=== PATIENT | male | born 1995 | race African-American/Black ===

== ENCOUNTER 2023-06-07 17:39 | Emergency (ER) | payer MEDICAID ==
[~2023-06-07] VITALS: Ht 175.3 cm; Wt 68.5 kg
[2023-06-07] MEDS ORDERED: CHLORDIAZEPOXIDE HCL 25 MG CAPSULE ONE (20:38)
[2023-06-07] MEDS ORDERED: CHLORDIAZEPOXIDE HCL 25 MG CAPSULE PO ONE (21:00)
[2023-06-07 21:10] LABS: BASOPHILS # (AUTO) 0.1 K/uL (0.0-0.2); BASOPHILS % (AUTO) 0.7 % (0.0-2.0); EOSINOPHILS % (AUTO) 0.4 % (0.0-6.0); HEMATOCRIT 38 % (39-51); HEMOGLOBIN 12.7 g/dL (13.5-17.5); LYMPHOCYTES # (AUTO) 0.8 K/uL (0.8-4.8); LYMPHOCYTES % (AUTO) 9.3 % (20.0-44.0); MEAN CORPUSCULAR HEMOGLOBIN 30 PG (26.0-33.0); MEAN CORPUSCULAR HGB CONC 33 g/dl (31.0-36.0); MEAN CORPUSCULAR VOLUME 90 fL (80-96); MONOCYTES % (AUTO) 11.8 % (2.0-12.0); NEUTROPHILS # (AUTO) 6.8 K/uL (1.8-8.9); NEUTROPHILS % (AUTO) 77.8 % (43.0-81.0); PLATELET COUNT (AUTO) 161 K/uL (150-450); RED BLOOD CELL COUNT(AUTO) 4.24 MIL/uL (4.5-6.0); RED CELL DISTRIBUTION WIDTH 18.3 % (11.5-15.0); WHITE BLOOD COUNT (AUTO) 8.7 K/uL (4.3-11.0)
[2023-06-07 21:18] LABS: CALCIUM, SERUM 9.2 mg/dL (8.5-10.1); CREATININE 1.3 mg/dL (0.6-1.3); POTASSIUM 3.6 mmol/L (3.5-5.1)
[2023-06-07] MEDS ORDERED: LEVETIRACETAM (500MG) 500 MG/5 ML VIAL IV ONE (21:59)
[2023-06-07] MEDS ORDERED: CHLO25CA22 PO (22:00)
[2023-06-07] MEDS ORDERED: LEVETIRACETAM (500MG) 500 MG in IV NS 0.9% 100 ML IV SCH (22:00)
[2023-06-07] MEDS ORDERED: IV NS 0.9% 1,000 ML BAG IV ONE (22:00)
[2023-06-07] MEDS ORDERED: IBUP-1955 PO (23:02)
[2023-06-07] MEDS ORDERED: IBUPROFEN 600 MG TABLET ONE (23:04)
[2023-06-07] MEDS ORDERED: IBUPROFEN 600 MG TABLET PO ONE (23:30)
[2023-06-07 23:52] VITALS: BP 145/70; TEMP 98.4; O2SAT 100
== END 2023-06-07 23:50 | disposition home or self-care (01) ==
LOC: EDBD 17:51 → ER 17:51
DX: G40.909 Epilepsy, unspecified, not intractable, without status epilepticus (principal); E87.1 Hypo-osmolality and hyponatremia; Z60.2 Problems related to living alone
CPT/HCPCS: 99285; 96365; 85025; 80048; 36415; 80320; J7030 ×2; J1953 ×2; G0480

== ENCOUNTER 2024-03-28 20:58 | Inpatient (IN) | payer MEDICAID ==
[~2024-03-28] VITALS: Ht 175.3 cm; Wt 65.8 kg
[~2024-03-28 20:58] MED LIST: CHLO25CA22 PO; DOXY100C2 PO; IBUP-1955 PO
[2024-03-28] MEDS ORDERED: DIAZEPAM 5 MG/ML 2 ML DISP.SYRIN ONE ×2 (21:21→23:20)
[2024-03-28] MEDS: IV NS 0.9% 1,000 ML BAG IV ONE (21:21)
[2024-03-28 21:22] LABS: BASOPHILS % (AUTO) 0.4 % (0.0-2.0); EOSINOPHILS % (AUTO) 0.2 % (0.0-6.0); HEMATOCRIT 39 % (39-51); HEMOGLOBIN 12.6 g/dL (13.5-17.5); MEAN CORPUSCULAR HEMOGLOBIN 30 PG (26.0-33.0); MEAN CORPUSCULAR HGB CONC 32 g/dl (31.0-36.0); MEAN CORPUSCULAR VOLUME 95 fL (80-96); MONOCYTES # (AUTO) 1.5 K/uL (0.1-1.30); MONOCYTES % (AUTO) 13.2 % (2.0-12.0); NEUTROPHILS # (AUTO) 7.7 K/uL (1.8-8.9); NEUTROPHILS % (AUTO) 68.2 % (43.0-81.0); PLATELET COUNT (AUTO) 176 K/uL (150-450); RED BLOOD CELL COUNT(AUTO) 4.16 MIL/uL (4.5-6.0); RED CELL DISTRIBUTION WIDTH 19.8 % (11.5-15.0); WHITE BLOOD COUNT (AUTO) 11.3 K/uL (4.3-11.0)
[2024-03-28] MEDS: DIAZEPAM 5 MG/ML 2 ML DISP.SYRIN IV ONE ×2 (21:26→23:36)
[2024-03-28 21:50] LABS: CALCIUM, SERUM 10.2 mg/dL (8.5-10.1); CARBON DIOXIDE 17 mmol/L (21-32); CHLORIDE 92 mmol/L (98-107); CREATININE 1.4 mg/dL (0.6-1.3); GLUCOSE 179 mg/dL (74-106); POTASSIUM 3.2 mmol/L (3.5-5.1); SODIUM SERUM 137 mmol/L (136-145); UREA NITROGEN, BLOOD 9 mg/dL (7-18)
[2024-03-28 21:56] LABS: ALANINE AMINOTRANSFERASE 58 U/L (12-78); ALBUMIN 3.8 g/dL (3.4-5.0); ALCOHOL, BLOOD < 3 mg/dL (0-10); ALKALINE PHOSPHATASE 249 U/L (46-116); ASPARTATE AMINOTRANSFERASE 219 U/L (15-37); BILIRUBIN,DIRECT 0.2 mg/dL (0.0-0.2); BILIRUBIN,TOTAL 0.6 mg/dL (0.2-1.0)
[2024-03-28 22:24] VITALS: O2SAT 99
[2024-03-28] MEDS ORDERED: Z GUARD REMEDY 4 OZ OINT TP PRN (23:00)
[2024-03-28] MEDS ORDERED: PHARMACY ADD 1 AMP MVI TO IVF DAILY ONE BAG XX PRN (23:00)
[2024-03-28] MEDS ORDERED: MAGNESIUM HYDROXIDE 30 ML UDC PO PRN (23:00)
[2024-03-28] MEDS ORDERED: LORAZEPAM INJ 2 MG/ML VIAL IV PRN (23:00)
[2024-03-28] MEDS ORDERED: ONDANSETRON HCL/PF 4 MG/2 ML VIAL IVP PRN (23:00)
[2024-03-28] MEDS ORDERED: ZOLPIDEM TARTRATE 5 MG TABLET PO PRN (23:00)
[2024-03-28] MEDS ORDERED: MAG HYDROX/AL HYDROX/SIMETH 30 ML UDC PO PRN (23:00)
[2024-03-28 23:09] LABS: AMPHETAMINE, URINE NEGATIVE (NEGATIVE); BARBITURATE, URINE NEGATIVE (NEGATIVE); BENZODIAZEPINE, URINE NEGATIVE (NEGATIVE); CANNABINOID, URINE NEGATIVE (NEGATIVE); COCCAINE, URINE NEGATIVE (NEGATIVE); OPIATE, URINE NEGATIVE (NEGATIVE); PHENCYCLIDINE SCREEN,URINE NEGATIVE (NEGATIVE)
[2024-03-28] MEDS ORDERED: POTASSIUM CHLORIDE 20 MEQ POWDER PACKET ONE (23:20)
[2024-03-28] MEDS: POTASSIUM CHLORIDE 20 MEQ TAB.PRT.SR PO ONE (23:24)
[2024-03-28 23:30] VITALS: BP 134/76; TEMP 100.4; O2SAT 98
[2024-03-29] MEDS ORDERED: LEVETIRACETAM (500MG) 500 MG/5 ML VIAL IV ONE (01:00)
[2024-03-29] MEDS: LEVETIRACETAM (500MG) 500 MG in IV NS 0.9% 100 ML IV SCH ×2 (01:11→11:23)
[2024-03-29] MEDS: IV NS 0.9% 1,000 ML IV PRN (01:12)
[2024-03-29] MEDS: ACETAMINOPHEN 325 MG TABLET PO PRN (01:22)
[2024-03-29] MEDS ORDERED: Thiamine 100 MG/ML VIAL ONE (03:21)
[2024-03-29] MEDS: Thiamine 100 MG in IV D5W 50 ML IV ONE (03:26)
[2024-03-29 04:00] VITALS: BP 128/91; TEMP 98.8; O2SAT 100
[2024-03-29 07:00] VITALS: BP 109/52; TEMP 97.9; O2SAT 97
[2024-03-29] MEDS: PANTOPRAZOLE 40 MG TABLET.DR PO SCH (07:57)
[2024-03-29] MEDS: MULTIVITAMINS,THERAGRAN 1 UDTAB TABLET PO SCH (08:04)
[2024-03-29] MEDS: CHLORDIAZEPOXIDE HCL 25 MG CAPSULE PO SCH (08:04)
[2024-03-29] MEDS: FOLIC ACID 1 MG TABLET PO SCH (08:04)
[2024-03-29 09:24] LABS: BASOPHILS % (AUTO) 0.6 % (0.0-2.0); EOSINOPHILS # (AUTO) 0.1 K/uL (0.0-0.7); EOSINOPHILS % (AUTO) 1.2 % (0.0-6.0); HEMATOCRIT 38 % (39-51); HEMOGLOBIN 12.4 g/dL (13.5-17.5); LYMPHOCYTES # (AUTO) 0.9 K/uL (0.8-4.8); MEAN CORPUSCULAR HEMOGLOBIN 31 PG (26.0-33.0); MEAN CORPUSCULAR HGB CONC 33 g/dl (31.0-36.0); MEAN CORPUSCULAR VOLUME 92 fL (80-96); MONOCYTES # (AUTO) 0.8 K/uL (0.1-1.30); MONOCYTES % (AUTO) 11.3 % (2.0-12.0); NEUTROPHILS # (AUTO) 5.2 K/uL (1.8-8.9); NEUTROPHILS % (AUTO) 73.9 % (43.0-81.0); PLATELET COUNT (AUTO) 154 K/uL (150-450); RED BLOOD CELL COUNT(AUTO) 4.06 MIL/uL (4.5-6.0); RED CELL DISTRIBUTION WIDTH 19.8 % (11.5-15.0)
[2024-03-29 09:42] LABS: CALCIUM, SERUM 9.3 mg/dL (8.5-10.1); CREATININE 0.9 mg/dL (0.6-1.3); POTASSIUM 3.1 mmol/L (3.5-5.1)
[2024-03-29 09:43] LABS: BILIRUBIN,DIRECT 0.2 mg/dL (0.0-0.2); BILIRUBIN,TOTAL 0.7 mg/dL (0.2-1.0); PHOSPHORUS 2.9 mg/dL (2.5-4.9); TOTAL PROTEIN, SERUM 8.2 g/dL (6.4-8.2)
[2024-03-29 11:34] LABS: THYROID STIMULATING HORMONE 1.03 uIU/mL (0.358-3.74)
[2024-03-29 12:00] VITALS: BP 120/75; TEMP 98.4; O2SAT 98
[2024-03-29 16:00] VITALS: BP 123/89; TEMP 98.4; O2SAT 100
[2024-03-29 20:00] VITALS: BP 129/84; TEMP 99; O2SAT 100
[2024-03-29] MEDS: POTASSIUM CHLORIDE 20 MEQ TAB.PRT.SR PO ONE (20:32)
[2024-03-30] VITALS: BP 146/91; TEMP 98.2; O2SAT 100
[2024-03-30 05:00] VITALS: BP 133/98; TEMP 98; O2SAT 100
[2024-03-30 08:00] VITALS: BP 123/89; TEMP 98.2; O2SAT 99
[2024-03-30] MEDS: THIAMINE HCL 100 MG TABLET PO SCH (08:43)
[2024-03-30 11:06] LABS: BASOPHILS % (AUTO) 0.5 % (0.0-2.0); EOSINOPHILS # (AUTO) 0.2 K/uL (0.0-0.7); HEMATOCRIT 41 % (39-51); HEMOGLOBIN 12.8 g/dL (13.5-17.5); LYMPHOCYTES # (AUTO) 1.1 K/uL (0.8-4.8); LYMPHOCYTES % (AUTO) 21.8 % (20.0-44.0); MEAN CORPUSCULAR HEMOGLOBIN 30 PG (26.0-33.0); MEAN CORPUSCULAR HGB CONC 32 g/dl (31.0-36.0); MEAN CORPUSCULAR VOLUME 95 fL (80-96); MONOCYTES # (AUTO) 0.6 K/uL (0.1-1.30); MONOCYTES % (AUTO) 10.7 % (2.0-12.0); NEUTROPHILS # (AUTO) 3.3 K/uL (1.8-8.9); PLATELET COUNT (AUTO) 165 K/uL (150-450); RED BLOOD CELL COUNT(AUTO) 4.26 MIL/uL (4.5-6.0); RED CELL DISTRIBUTION WIDTH 19.5 % (11.5-15.0); WHITE BLOOD COUNT (AUTO) 5.2 K/uL (4.3-11.0)
[2024-03-30 12:00] VITALS: BP 126/90; TEMP 98.8; O2SAT 100
[2024-03-30 12:25] LABS: APPEARANCE,URINE CLEAR (CLEAR); BILIRUBIN,URINE NEGATIVE (NEGATIVE); BLOOD, URINE NEGATIVE Ery/uL (NEGATIVE); COLOR,URINE YELLOW (YELLOW); KETONES,URINE NEGATIVE (NEGATIVE); LEUKOCYTE ESTERASE ,URINE NEGATIVE (NEGATIVE); NITRITE, URINE NEGATIVE (NEGATIVE); PROTEIN,URINE NEGATIVE (NEGATIVE); UGLUCOSE NEGATIVE (NEGATIVE); UROBILINOGEN,URINE 0.2 EU/dL (0.2)
[2024-03-30 12:30] LABS: EOSINOPHIL,URINE None Seen
[2024-03-30 12:44] LABS: CREATININE, URINE 124.1 MG/DL (30.0-125.0)
[2024-03-30 13:31] LABS: ALBUMIN 3.4 g/dL (3.4-5.0); BILIRUBIN,TOTAL 0.6 mg/dL (0.2-1.0); CALCIUM, SERUM 9.8 mg/dL (8.5-10.1); CREATININE 0.9 mg/dL (0.6-1.3); MAGNESIUM 1.8 mg/dL (1.8-2.4); POTASSIUM 3.6 mmol/L (3.5-5.1); TOTAL PROTEIN, SERUM 9.5 g/dL (6.4-8.2)
[2024-03-30] MEDS: K PHOS NEUTRAL 250 MG TABLET PO ONE (16:33)
[2024-03-30] MEDS ORDERED: LEVETIRACETAM (250 MG) 250 MG TABLET PO SCH (21:00)
[2024-03-31 10:07] LABS: PTH, INTACT 8 pg/mL (15-65)
[2024-03-31 14:10] LABS: *SPE A/G RATIO 0.8 (0.7-1.7); *SPE ALBUMIN 3.3 g/dL (2.9-4.4); *SPE ALPHA-1-GLOBULIN 0.3 g/dL (0.0-0.4); *SPE ALPHA-2-GLOBULIN 0.9 g/dL (0.4-1.0); *SPE M-SPIKE Not Observed g/dL (Not Observed); *SPE PROTEIN TOTAL 7.3 g/dL (6.0-8.5); *SPEGAMMA GLOBULIN 1.9 g/dL (0.4-1.8)
[2024-04-03 10:10] LABS: VITAMIN B1 THIAMINE,WB 204.3 nmol/L (66.5-200.0)
== END 2024-03-30 17:45 | disposition left against medical advice (07) | DRG 53 ==
LOC: ER 21:02 → TELE 22:13
PROVIDERS: ADMIT Nurse Practitioner Family; ATTEND Internal Medicine
DX: G40.909 Epilepsy, unspecified, not intractable, without status epilepticus (principal); G92.9 Unspecified toxic encephalopathy; N17.9 Acute kidney failure, unspecified; E87.20 Acidosis, unspecified; E87.6 Hypokalemia; F10.139 Alcohol abuse with withdrawal, unspecified; Z59.00 Homelessness unspecified; D64.9 Anemia, unspecified; E66.3 Overweight; E86.9 Volume depletion, unspecified; Z91.199 Patient's noncompliance with other medical treatment and regimen due to unspecified reason; R74.01 Elevation of levels of liver transaminase levels; Y90.0 Blood alcohol level of less than 20 mg/100 ml; R73.9 Hyperglycemia, unspecified; M89.8X9 Other specified disorders of bone, unspecified site
CPT/HCPCS: 36415; 70450-TC; 76700-TC; 80048-TC; 80053-TC; 80061-TC; 80076-TC; 82550-TC; 82553; 82570-TC; 82607-TC; 83735-TC; 83921; 83970; 84100-TC; 84155; 84165; 84300-TC; 84425; 84443-TC; 85025-TC; 98960; A4223; G0378; G0480; J1953; J3360; J3411; J7030; J7060

== ENCOUNTER 2024-04-13 05:11 | Emergency (ER) | payer MEDICAID ==
[~2024-04-13] VITALS: Ht 175.3 cm; Wt 81.6 kg
[~2024-04-13 05:11] MED LIST changes: -CHLO25CA22 PO; -IBUP-1955 PO
[2024-04-13] MEDS ORDERED: LORAZEPAM INJ 2 MG/ML VIAL ONE (06:21)
[2024-04-13] MEDS: LORAZEPAM INJ 2 MG/ML VIAL IV ONE (06:36)
[2024-04-13] MEDS: IV NS 0.9% 1,000 ML BAG IV ONE (06:36)
[2024-04-13 06:41] LABS: BASOPHILS # (AUTO) 0.1 K/uL (0.0-0.2); BASOPHILS % (AUTO) 1.3 % (0.0-2.0); EOSINOPHILS # (AUTO) 0.1 K/uL (0.0-0.7); EOSINOPHILS % (AUTO) 2.7 % (0.0-6.0); HEMATOCRIT 38 % (39-51); HEMOGLOBIN 12.7 g/dL (13.5-17.5); LYMPHOCYTES # (AUTO) 3.1 K/uL (0.8-4.8); LYMPHOCYTES % (AUTO) 60.4 % (20.0-44.0); MEAN CORPUSCULAR HEMOGLOBIN 31 PG (26.0-33.0); MEAN CORPUSCULAR HGB CONC 34 g/dl (31.0-36.0); MEAN CORPUSCULAR VOLUME 92 fL (80-96); MONOCYTES # (AUTO) 0.4 K/uL (0.1-1.30); MONOCYTES % (AUTO) 8.8 % (2.0-12.0); NEUTROPHILS # (AUTO) 1.4 K/uL (1.8-8.9); NEUTROPHILS % (AUTO) 26.8 % (43.0-81.0); PLATELET COUNT (AUTO) 243 K/uL (150-450); RED BLOOD CELL COUNT(AUTO) 4.14 MIL/uL (4.5-6.0); RED CELL DISTRIBUTION WIDTH 18.5 % (11.5-15.0); WHITE BLOOD COUNT (AUTO) 5.1 K/uL (4.3-11.0)
[2024-04-13 07:16] LABS: ALANINE AMINOTRANSFERASE 95 U/L (12-78); ALBUMIN 3.5 g/dL (3.4-5.0); ALCOHOL, BLOOD 415 mg/dL (0-10); ALKALINE PHOSPHATASE 160 U/L (46-116); ASPARTATE AMINOTRANSFERASE 309 U/L (15-37); BILIRUBIN,DIRECT 0.2 mg/dL (0.0-0.2); BILIRUBIN,TOTAL 0.3 mg/dL (0.2-1.0); CALCIUM, SERUM 8.5 mg/dL (8.5-10.1); CARBON DIOXIDE 28 mmol/L (21-32); CHLORIDE 101 mmol/L (98-107); CREATININE 0.9 mg/dL (0.6-1.3); GLUCOSE 97 mg/dL (74-106); POTASSIUM 3.8 mmol/L (3.5-5.1); SODIUM SERUM 138 mmol/L (136-145); TOTAL PROTEIN, SERUM 8.4 g/dL (6.4-8.2); UREA NITROGEN, BLOOD 9 mg/dL (7-18)
[2024-04-13 07:21] LABS: ACETAMINOPHEN <10 ug/ml (10-30)
[2024-04-13] MEDS ORDERED: CHLO25CA22 PO (07:48)
[2024-04-13 11:27] VITALS: BP 126/78; TEMP 98.4; O2SAT 99
== END 2024-04-13 11:28 | disposition home or self-care (01) ==
LOC: ER 05:34
DX: K70.9 Alcoholic liver disease, unspecified (principal); F10.20 Alcohol dependence, uncomplicated; Z60.2 Problems related to living alone; Y90.8 Blood alcohol level of 240 mg/100 ml or more
CPT/HCPCS: 99283; 96374; 96361; 85025; 80048; 80076; 36415; 80143; 80320; 98960; J2060; J7030; G0480

== ENCOUNTER 2024-05-05 16:01 | Emergency (ER) | payer MEDICAID ==
[~2024-05-05] VITALS: Ht 175.3 cm; Wt 68.0 kg
[~2024-05-05 16:01] MED LIST changes: +CHLO25CA22 PO
[2024-05-05] MEDS ORDERED: FOLIC ACID 1 MG TABLET ONE (17:26)
[2024-05-05] MEDS ORDERED: THIAMINE HCL 100 MG TABLET ONE (17:27)
[2024-05-05] MEDS: FOLIC ACID 1 MG TABLET PO ONE (17:32)
[2024-05-05] MEDS: THIAMINE HCL 100 MG TABLET PO ONE (17:32)
[2024-05-05 17:43] LABS: BASOPHILS % (AUTO) 1.3 % (0.0-2.0); EOSINOPHILS % (AUTO) 0.4 % (0.0-6.0); HEMATOCRIT 42 % (39-51); LYMPHOCYTES # (AUTO) 2.3 K/uL (0.8-4.8); LYMPHOCYTES % (AUTO) 59.4 % (20.0-44.0); MEAN CORPUSCULAR HEMOGLOBIN 31 PG (26.0-33.0); MEAN CORPUSCULAR HGB CONC 34 g/dl (31.0-36.0); MEAN CORPUSCULAR VOLUME 93 fL (80-96); MONOCYTES # (AUTO) 0.5 K/uL (0.1-1.30); MONOCYTES % (AUTO) 12.7 % (2.0-12.0); NEUTROPHILS % (AUTO) 26.2 % (43.0-81.0); PLATELET COUNT (AUTO) 329 K/uL (150-450); RED BLOOD CELL COUNT(AUTO) 4.47 MIL/uL (4.5-6.0); RED CELL DISTRIBUTION WIDTH 15.4 % (11.5-15.0); WHITE BLOOD COUNT (AUTO) 3.9 K/uL (4.3-11.0)
[2024-05-05] MEDS: IV NS 0.9% 1,000 ML BAG IV ONE (17:45)
[2024-05-05 17:57] LABS: CREATININE 1.1 mg/dL (0.6-1.3)
[2024-05-05 18:03] LABS: ALBUMIN 4.2 g/dL (3.4-5.0); BILIRUBIN,DIRECT 0.2 mg/dL (0.0-0.2); BILIRUBIN,TOTAL 0.4 mg/dL (0.2-1.0); TOTAL PROTEIN, SERUM 8.8 g/dL (6.4-8.2)
[2024-05-05] MEDS ORDERED: CHLO25CA22 PO (18:05)
[2024-05-05 19:01] VITALS: BP 143/88; TEMP 98.2; O2SAT 97
== END 2024-05-05 19:02 | disposition home or self-care (01) ==
LOC: ER 16:15
DX: E86.0 Dehydration (principal); F10.10 Alcohol abuse, uncomplicated; F32.A Depression, unspecified
CPT/HCPCS: 99283; 85025; 80048; 83690; 80076; 36415; 98960; J7030

== ENCOUNTER 2024-05-09 22:14 | Emergency (ER) | payer MEDICAID ==
[~2024-05-09] VITALS: Ht 175.3 cm; Wt 68.0 kg
[2024-05-09 22:54] VITALS: BP 143/93; TEMP 98.4
[2024-05-09] MEDS: CHLORDIAZEPOXIDE HCL 25 MG CAPSULE PO ONE (23:15)
[2024-05-09 23:16] VITALS: O2SAT 100
[2024-05-09] MEDS: ONDANSETRON 4 MG TAB.RAPDIS SL ONE (23:16)
== END 2024-05-09 23:16 | disposition home or self-care (01) ==
LOC: ER 22:19
DX: F10.20 Alcohol dependence, uncomplicated (principal); R11.2 Nausea with vomiting, unspecified; Z98.890 Other specified postprocedural states